=== PATIENT | male | born 1990 | race Caucasian/White ===

== ENCOUNTER 2019-11-02 13:47 | Inpatient (IN) | payer MEDICAID ==
[~2019-11-02] VITALS: Ht 185.4 cm; Wt 67.2 kg
[2019-11-02 15:52] VITALS: BP 128/87
[2019-11-02 16:45] VITALS: BP 135/90
[2019-11-02] MEDS ORDERED: INFLUENZA VIRUS VACCINE QVS 2019-20 (3YR+)/PF 60 MCG/0.5 ML SYRINGE IM ONE (16:45)
[2019-11-02] MEDS: LORazepam 2 MG TABLET PO PRN (17:25)
[2019-11-02] MEDS: ZOLPIDEM TARTRATE 10 MG TABLET PO PRN (20:41)
[2019-11-03 06:07] VITALS: BP 133/82
[2019-11-03 07:28] LABS: EOSINOPHILS % (AUTO) 3.5 % (1.0-6.0); HEMATOCRIT 39.1 % (41-53); HEMOGLOBIN 13.4 g/dL (13.5-17.5); LYMPHOCYTES # (AUTO) 1.6 K/uL (1.0-4.8); LYMPHOCYTES % (AUTO) 32.8 % (22.0-44.0); MEAN CORPUSCULAR HEMOGLOBIN 32.3 pg (26.0-34.0); MEAN CORPUSCULAR HGB CONC 34.2 G/dL (31.0-37.0); MEAN CORPUSCULAR VOLUME 95 fL (80-100); MONOCYTES # (AUTO) 0.6 K/uL (0.1-1.0); MONOCYTES % (AUTO) 12.9 % (2.0-9.0); NEUTROPHILS # (AUTO) 2.4 K/uL (1.8-7.7); NEUTROPHILS % (AUTO) 49.8 % (40.0-70.0); PLATELET COUNT (AUTO) 286 K/uL (150-450); RED BLOOD CELL COUNT(AUTO) 4.13 MIL/uL (4.50-5.90); RED CELL DISTRIBUTION WIDTH 12.9 % (11.5-14.5)
[2019-11-03 07:55] LABS: HEMOGLOBIN A1C 5.3 % (4.5-6.2)
[2019-11-03 07:56] LABS: ALANINE AMINOTRANSFERASE 35 U/L (12-78); ALBUMIN 3.9 g/dL (3.4-5.0); ALKALINE PHOSPHATASE 48 U/L (46-116); ANION GAP 7 mmol/L (8-16); ASPARTATE AMINOTRANSFERASE 25 U/L (15-37); BILIRUBIN,TOTAL 0.4 mg/dL (0.1-1.0); CALCIUM, TOTAL 8.9 mg/dL (8.8-10.5); CARBON DIOXIDE 29 mmol/L (22-29); CHLORIDE 102 mmol/L (98-107); CHOLESTEROL 146 mg/dL (131-200); CREATININE 0.96 mg/dL (0.60-1.30); FREE T4 (FREE THYROXINE) 0.77 ng/dL (0.76-1.46); GLOMERULAR FILTR. RATE CALC > 60 mL/min (>60); GLUCOSE,RANDOM 102 mg/dL (70-110); HDL CHOLESTEROL 72 mg/dL (40-60); LDL CHOL (CALC.) 62 mg/dL (0-130); POTASSIUM 4.2 mmol/L (3.5-5.1); SODIUM SERUM 138 mmol/L (136-145); THYROID STIMULATING HORMONE 0.64 uIU/mL (0.36-3.74); TOTAL PROTEIN, SERUM 7.3 g/dL (6.4-8.2); TRIGLYCERIDES 59 mg/dL (15-150); UREA NITROGEN, BLOOD 12 mg/dL (7-18)
[2019-11-03 08:04] VITALS: BP 125/82
[2019-11-03] MEDS ORDERED: ONDANSETRON HCL 4 MG TABLET PO PRN (08:15)
[2019-11-03] MEDS ORDERED: ALBUTEROL SULFATE HFA 90 MCG/PUFF 8 GM INHALER IH PRN (08:15)
[2019-11-03] MEDS ORDERED: MAGNESIUM HYDROXIDE SUSPENSION 30 ML UDCUP PO PRN (08:15)
[2019-11-03] MEDS ORDERED: ACETAMINOPHEN 325 MG TABLET PO PRN (08:15)
[2019-11-03] MEDS ORDERED: DOCUSATE SODIUM 100 MG CAPSULE PO PRN (08:15)
[2019-11-03] MEDS ORDERED: PETROLATUM,WHITE 28 GM JELLY TP PRN (08:15)
[2019-11-03] MEDS ORDERED: LOPERAMIDE HCL 2 MG CAPSULE PO PRN (08:15)
[2019-11-03] MEDS ORDERED: MAG HYDROX/AL HYDROX/SIMETH ES 30 ML SUSPENSION UDCUP PO PRN (08:15)
[2019-11-03] MEDS ORDERED: CloNIDine HCL 0.1 MG TABLET PO PRN (08:15)
[2019-11-03] MEDS ORDERED: GuaiFENesin/D-METHORPHAN [SUGAR-FREE] 200-20MG/10 ML SYRUP UDCUP PO PRN (08:15)
[2019-11-03] MEDS ORDERED: IBUPROFEN 400 MG TABLET PO PRN (08:15)
[2019-11-03] MEDS ORDERED: NICOTINE 14 MG/24 HOUR PATCH TD SCH (09:00)
[2019-11-03] MEDS: NICOTINE 14 MG/24 HOUR PATCH TD PRN (09:58)
[2019-11-03] MEDS: LORazepam 2 MG TABLET PO PRN (14:59)
[2019-11-03] MEDS: HALOPERIDOL 5 MG TABLET PO PRN (16:51)
[2019-11-03 19:22] VITALS: BP 120/82
[2019-11-03] MEDS: MIRTAZAPINE 15 MG TABLET PO SCH (20:32)
[2019-11-03] MEDS: ARIPiprazole 15 MG TABLET PO SCH (20:32)
[2019-11-04 05:36] VITALS: BP 109/68
[2019-11-04] MEDS: LORazepam 2 MG TABLET PO PRN ×2 (06:07→14:03)
[2019-11-04 08:02] VITALS: BP 121/76
[2019-11-04] MEDS: NICOTINE 14 MG/24 HOUR PATCH TD PRN (09:28)
[2019-11-04] MEDS: HALOPERIDOL 5 MG TABLET PO PRN (14:03)
[2019-11-04 16:04] VITALS: BP 129/74
[2019-11-04] MEDS: MIRTAZAPINE 15 MG TABLET PO SCH (20:25)
[2019-11-04] MEDS: ARIPiprazole 15 MG TABLET PO SCH (20:25)
[2019-11-05 01:07] VITALS: BP 122/84
[2019-11-05 08:15] VITALS: BP 119/75
[2019-11-05] MEDS: LORazepam 2 MG TABLET PO PRN ×2 (08:49→17:49)
[2019-11-05 13:34] VITALS: BP 119/75
[2019-11-05 16:06] VITALS: BP 118/64
[2019-11-05] MEDS: HALOPERIDOL 5 MG TABLET PO PRN (17:49)
[2019-11-05] MEDS: ZOLPIDEM TARTRATE 10 MG TABLET PO PRN (20:54)
[2019-11-05] MEDS: MIRTAZAPINE 15 MG TABLET PO SCH (20:54)
[2019-11-05] MEDS: ARIPiprazole 15 MG TABLET PO SCH (20:54)
[2019-11-06 05:00] VITALS: BP 128/76
[2019-11-06] MEDS: LORazepam 2 MG TABLET PO PRN (05:34)
[2019-11-06] MEDS: NICOTINE POLACRILEX 2 MG LOZENGE PO PRN ×3 (05:34→12:15)
[2019-11-06 06:08] VITALS: BP 123/76
[2019-11-06 08:03] VITALS: BP 130/77
[2019-11-06] MEDS ORDERED: MIRT15 PO (13:42)
[2019-11-06] MEDS ORDERED: ARIP15TA2 PO (13:42)
== END 2019-11-06 14:11 | disposition home or self-care (01) | DRG 750 ==
LOC: B3A 16:08
DX: F25.1 Schizoaffective disorder, depressive type (principal); R45.851 Suicidal ideations; D64.9 Anemia, unspecified; F10.10 Alcohol abuse, uncomplicated; F60.0 Paranoid personality disorder; Z91.5 Personal history of self-harm
CPT/HCPCS: 83036; 84439; 84443; 87081; 90686